=== PATIENT | female | born 1995 | race Two or more races ===

== ENCOUNTER 2025-03-24 08:09 | Outpatient (AMB) | payer MEDICAID, SELFPAY ==
[2025-03-24 08:30] VITALS: BP 109/69; PULSE 84; RESP 18; TEMP 36.2; O2SAT 98; BMI 30.9
--- NOTE | 2025-03-24 08:30 | OBCLNT_ITS ---
Vital Signs 03/24/25 08:30 Height 1.6 m Height Method Stated Weight 79.095 kg Weight Measurement Method Standing Scale BMI 30.9 BP 109/69 Blood Pressure Source Automatic Cuff Blood Pressure Location Left Upper Arm Position Sitting Respiration 18 Pulse 84 Pulse Source Monitor Temp 97.2 F Temp Source Oral Pulse Oximetry (%) 98 Oxygen Delivery Method Room Air Allergies/Home Meds Allergies & Medications Allergies No Known Allergies Allergy (Verified 03/24/25 08:34) Medication Reconciliation vits no.130-ferrous fum 27 mg iron-folic acid 800 mcg tablet ( Vitamin) 1 tab PO DAILY #60 tabs 03/24/25 [Rx] Intake Visit Data Collection New Patient or Established: Established Patient (seen at [facility] within 3 years) Reason for Visit:: OBI Seen by Clinical Staff ONLY (RN/MA): No Topper Press Operator Required: No Do You Feel Safe at Home: Yes Authorities Contacted: N/A PCP or OBGYN visit in last 3 months: Yes Hx Now: Yes Are you currently on any form of Control: No Last menstrual period: 11/24/24 Pain Present Currently: No Pain Scale Used: Lau-Campbell/Numerical Pain scale:: 0 Smoking Status Smoking Status: Never smoker Questionnaires Covid-19 Vaccine Questionnaire Has patient been vacinated for Covid-19 Have you been vacinated for Covid-19: Yes PHQ-9 PHQ-2 Over the last 2 weeks, how often have you been bothered by any of the following problems? 1. Little interest or pleasure in doing things: not at all 2. Feeling down, depressed, or hopeless: not at all Total score: 0 PHQ-9 3. Trouble falling or staying asleep, or sleeping too much: Not at all 4. Feeling tired or having little energy: Not at all 5. Poor appetite or overeating: Not at all 6. Feeling bad about yourself - or that you are a failure or have let yourself or your family down: Not at all 7. Trouble concentrating on things, such as reading the newspaper or watching television: Not at all 8. Moving or speaking so slowly that other people could have noticed? - Or the opposite - being so fidgety or restless that you have been moving around a lot more than usual: not at all 9. Thoughts that you would be better off or of hurting yourself in some way: Not at all Total score: 0 If you checked off any problems, how difficult have these problems made it for you to do your work, take care of things at home, or get along with other people?: not difficult at all Source: Developed by Drs. Eric Reich, Rin Mosher, Kurtis Bell and colleagues, with an educational ruby from [employer]. Depression screen completed yes Social History Living Situation History Marital Status: Lives With: Family Housing: [facility] Tobacco History Smoking Status: Never smoker Second Hand Smoke Exposure: No Alcohol History Alcohol Intake: Never Domestic Abuse History Do You Feel Safe at Home: Yes History of Present Illness HPI Narrative 29-year-old 4 para 2 for OBI. Patient is very happy about the . Her first 2 pregnancies were normal births and no problems. Denies any SAB complaints. Patient's last period November 24, 2024. Estimated due date August 31, 2025. She has good dates. And she reports her periods are every month. Her last Pap was 3 years ago. Patient denies social habits. Denies surgery. Denies chronic illness. And she needs a refill on her prenatals. 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 Last. Was able to . She has for dates. She is due August 31, 2025. Patient denies any leaking, denies bleeding, denies cramping. Reports movement. And she has had no problems so far with Refill prenatals today. Discussed schedule anatomy scan with MFM Dr. Tena. OB panel with NIPT, AFP and carrier screens today. Increase fluids. Discussed SAB precautions. Return in 4 weeks OB check Refill prenatals today. Dis cussed schedule anatomy scan with MFM Dr. Tena. OB panel with NIPT, AFP and carrier screens today. Increase fluids. Discussed SAB precautions. Return in 4 weeks OB check, pap PP Menstrual History Menstrual reliability: definite Flow: normal Menstrual regularity: regular Monthly: Yes Age at menarche: 11 On control pills at conception: No OB History : 4 Para: 2 Hx # Pregnancies: 0 Hx Total # of Abortions (Spontaneous & Elective): 1 # of Living Children: 2 Delivery History 1st : Child's name: NA date: 10/10/14 sex: male Gestational age at delivery (weeks): 39 Delivery type: vaginal weight (lbs): 3175.147 g History of depression before or after : No 2nd : Child's name: NA date: 11/13/23 sex: female Gestational age at delivery (weeks): 40 Delivery type: vaginal weight (lbs): 3175.147 g History of depression before or after : No Infection History & Risk Evaluation History of STDs: none HIV risk evaluation: low risk Hepatitis B risk evaluation: low risk Patient or partner has history of Genital Herpes: No Varicella/chicken pox status: immunized Genetic Screening & History Genetic Screening/Teratology Counseling - Includes patient, baby's father, or anyone in either family with: 1. Patient's age 35 years or older as of estimated date of delivery: No 2. Thalassemia (Greenlandic, Albanian, Mediterranean, or Background); MCV less than 80: No 3. Neural Tube Defect (Meningomyelocele, Spina Bifida, or Anencephaly): No 4. Congenital Heart Defect: No 5. Down Syndrome: No 6. Artie-Sachs (Ashkenazi Spiritism, Cajun, Arabic [place]): No 7. Killian Disease (Ashkenazi Spiritism): No 8. Familial Dysautonomia (Ashkenazi Spiritism): No 9. Sickle Cell Disease or Trait (): No 10. Hemophilia or other blood disorders: No 11. Muscular Dystrophy: No 12. Cystic Fibrosis: No 13. Nicollet's Chorea: No 14. Mental Retardation/Autism: No 15. Other inherited genetic or chromosomal disorder: No 16. Maternal Metabolic Disorder (EG,TYPE 1 Diabetes, PKU): No 17. Patient or baby's father had a child with defects not listed above: No 18. Recurrent loss or a stillbirth: No 19. Medications (including supplements, vitamins, herbs or otc drugs)/ill icit/recreational drugs/alcohol since last menstrual period: No 20. Any other: No Infection History 1. Live with someone with TB or exposed to TB: No 2. Rash or viral illness since last menstrual period: No 3. Hepatitis B,C: No Other (see comments) Source: [employer] Review of Systems Review of Systems Systems Reviewed: All systems reviewed, normal except as documented Exam General Limitations: no limitations General Appearance: alert, in no apparent distress, comfortable, cooperative, healthy appearing, well developed and well groomed Head Head exam: atraumatic, normocephalic and normal inspection Neck Neck exam: Present normal inspection, full ROM and trachea midline Chest Chest inspection: Present normal inspection and symmetric chest wall rise Resp Respiratory exam: Present normal lung sounds bilaterally Card Cardiovascular exam: Present regular rate, normal rhythm and normal heart sounds Abdominal Abdominal exam: Present soft and normal bowel sounds Psych Psychiatric exam: Present normal affect and normal mood Office Procedures OB Clinic LOC & Office Proc's Nursing/Assessment Patient Status: Established Patient OB Clinic Nursing Assessment: Medication Reconciliation, Update PMH in EMR and Vital Signs OB Clinic Coordination of Care: Complex Care and Chronic Disease 1-5, Consent,records obtained, informed consent, Lab and Imaging orders and Staff clarify orders Special Needs: Heart tones Established Patient Charge Established Patient Point Assignment: 115 Established Patient Point Charge: EP Level 3 (80-115) Results Urine HCG Urine HCG Positive Last Edit by Margy Jones MA on 03/24/25 08:46 Assessment & Plan Diagnosis / Problem List (1) Encounter for supervision of normal intrauterine in multigravida, antepartum: Status: Acute (2) Encounter for supervision of high risk in second trimester, antepartum: Status: Acute Plan Start vitamins. Schedule ultrasound for anatomy scan with MFM. OB panel today with NIPT and AFP. Discussed SAB precautions. Return in 4 weeks. PAP pp Additional Plan Follow Up: 4 Weeks (obc)
== END 2025-03-24 09:10 | disposition home or self-care (01) ==
LOC: HODSOBC 08:09
PROVIDERS: Supervising Provider Advanced Practice Midwife; Visit Provider Advanced Practice Midwife
DX: Z34.82 Encounter for supervision of other normal pregnancy, second trimester (principal); Z3A.17 17 weeks gestation of pregnancy
CPT/HCPCS: 99213; G0463

== ENCOUNTER 2025-04-26 09:17 | Outpatient (AMB) | payer MEDICAID, SELFPAY ==
[2025-04-26 09:33] VITALS: BP 120/76; PULSE 80; RESP 19; TEMP 36.3; O2SAT 98; BMI 32.4
--- NOTE | 2025-04-26 09:33 | AMB.OBVISIT ---
Vital Signs 04/26/25 09:33 Height 1.6 m Height Method Measured Weight 83.007 kg Weight Measurement Method Standing Scale BMI 32.4 BP 120/76 Blood Pressure Source Automatic Cuff Blood Pressure Location Right Upper Arm Position Sitting Respiration 19 Pulse 80 Pulse Source Monitor Temp 97.3 F Temp Source Temporal Artery Scan Pulse Oximetry (%) 98 Oxygen Delivery Method Room Air Allergies/Home Meds Allergies & Medications Allergies No Known Allergies Allergy (Verified 03/24/25 08:34) Intake Visit Data Collection New Patient or Established: Established Patient (seen at [facility] within 3 years) Reason for Visit:: OBC FOLLOW UP Seen by Clinical Staff ONLY (RN/MA): No Instructional Technology Teacher Required: Yes Instructional Technology Teacher's name/title: VOLODYMYR REZA Do You Feel Safe at Home: Yes Authorities Contacted: N/A PCP or OBGYN visit in last 3 months: Yes Date of Last PCP or OBGYN visit: 03/24/25 Hx Now: Yes Pain Present Currently: No Smoking Status Smoking Status: Never smoker Questionnaires PHQ-9 PHQ-2 Over the last 2 weeks, how often have you been bothered by any of the following problems? 1. Little interest or pleasure in doing things: not at all PHQ-9 8. Moving or speaking so slowly that other people could have noticed? - Or the opposite - being so fidgety or restless that you have been moving around a lot more than usual: not at all Source: Developed by Drs. Eric Reich, Rin Mosher, Kurtis Bell and colleagues, with an educational ruby from [employer]. 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 Last. Was able to 22nd to 25. She has for dates. She is due August 31, 2025. Patient denies any leaking, denies bleeding, denies cramping. Reports movement. And she has had no problems so far with Refill prenatals today. Discussed schedule anatomy scan with MFM Dr. Tena. OB panel with NIPT, AFP and carrier screens today. Increase fluids. Discussed SAB precautions. Return in 4 weeks OB check Refill prenatals today. Discussed schedule anatomy scan with MFM Dr. Tena. OB panel with NIPT, AFP and carrier screens today. Increase fluids. Discussed SAB precautions. Return in 4 weeks OB check, pap PP 04/26/25 <del>?</del> 21w 6d 83.007 kg 120/76 absent unknown 21 156 active Reports positive movement. Denies labor complaints. Denies leaking, bleeding, contractions. Discussed labs. Discussed labor precautions. Increase fluids. Maternal- medicine appointment is pending. Return in 4 weeks OB check HAYDE Calculator Estimated Delivery Date Method Current WG Current Estimate 08/31/25 LMP (Certain) 21w 6d Notes Visit Date: 04/26/25 Last Updated by: Michelle Alexander CNM O+,abs-, rpr;;nr, rub imm, hbsag-, hiv-, HC-, GC/CT-, UA-, NIPT/female. CF/SMA/AFP- Visit Date: 03/24/25 Last Updated by: Michelle Alexander CNM 29 yo . lmp: 11/24/24. EDC: 08/31/25 Office Procedures OB Clinic LOC & Office Proc's Nursing/Assessment Patient Status: Established Patient OB Clinic Nursing Assessment: Medication Reconciliation, Update PMH in EMR and Vital Signs OB Clinic Coordination of Care: Complex Care and Chronic Disease 1-5, Consent,records obtained, informed consent, Lab and Imaging orders, Results/Orders obtained and Staff clarify orders Special Needs: Heart tones Established Patient Charge Established Patient Point Assignment: 120 Established Patient Point Charge: EP Level 3 (80-115) Assessment & Plan Diagnosis / Problem List (1) Encounter for supervision of high risk in second trimester, antepartum: Status: Acute Plan Follow-up follow-up on maternal- medicine appointment. Discussed labor precautions. Increase fluids. Discussed labs. Return in 4 weeks OB check Additional Plan Follow Up: 4 Weeks (obc)
== END 2025-04-26 10:01 | disposition home or self-care (01) ==
LOC: HODSOBC 09:17
PROVIDERS: Supervising Provider Advanced Practice Midwife; Visit Provider Advanced Practice Midwife
DX: O09.92 Supervision of high risk pregnancy, unspecified, second trimester (principal); Z3A.21 21 weeks gestation of pregnancy
CPT/HCPCS: 99213; G0463

== ENCOUNTER 2025-05-25 10:24 | Outpatient (AMB) | payer MEDICAID, SELFPAY ==
[2025-05-25 10:51] VITALS: BP 111/70; PULSE 85; RESP 16; TEMP 36.4; O2SAT 98; BMI 34.2
--- NOTE | 2025-05-25 10:51 | OBCLNT_ITS ---
Vital Signs 05/25/25 10:51 Height 1.6 m Height Method Stated Weight 87.6 kg Weight Measurement Method Standing Scale BMI 34.2 BP 111/70 Blood Pressure Source Automatic Cuff Blood Pressure Location Right Upper Arm Position Sitting Respiration 16 Pulse 85 Pulse Source Monitor Temp 97.6 F Temp Source Temporal Artery Scan Pulse Oximetry (%) 98 Oxygen Delivery Method Room Air Allergies/Home Meds Allergies & Medications Allergies No Known Allergies Allergy (Verified 05/25/25 10:53) Medication Reconciliation vits no.130-ferrous fum 27 mg iron-folic acid 800 mcg tablet ( Vitamin) 1 tab PO DAILY #60 tabs 03/24/25 [Rx Confirmed 05/25/25] Intake Visit Data Collection New Patient or Established: Established Patient (seen at [facility] within 3 years) Reason for Visit:: OBC Seen by Clinical Staff ONLY (RN/MA): No Hogshead Inspector Required: No Do You Feel Safe at Home: Yes Authorities Contacted: N/A PCP or OBGYN visit in last 3 months: Yes Date of Last PCP or OBGYN visit: 04/26/25 Hx Now: Yes Are you currently on any form of Control: No Pain Present Currently: No Pain Scale Used: Lau-Campbell/Numerical Pain scale:: 0 Smoking Status Smoking Status: Never smoker Immunizations Flu Vaccine in the Last 12 Months: No Questionnaires Covid-19 Vaccine Questionnaire Has patient been vacinated for Covid-19 Have you been vacinated for Covid-19: No PHQ-9 PHQ-2 Over the last 2 weeks, how often have you been bothered by any of the following problems? 1. Little interest or pleasure in doing things: not at all 2. Feeling down, depressed, or hopeless: not at all Total score: 0 PHQ-9 8. Moving or speaking so slowly that other people could have noticed? - Or the opposite - being so fidgety or restless that you have been moving around a lot more than usual: not at all Source: Developed by Drs. Eric Reich, Rin Mosher, Kurtis Bell and colleagues, with an educational ruby from [employer]. 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 Last. Was able to 22nd to 25. She has for dates. She is due August 31, 2025. Patient denies any leaking, denies bleeding, denies cramping. Reports movement. And she has had no problems so far with Refill prenatals today. Discussed schedule anatomy scan with M Dr. Tena. OB panel with NIPT, AFP and carrier screens today. Increase fluids. Discussed SAB precautions. Return in 4 weeks OB check Refill prenatals today. Dis cussed schedule anatomy scan with M Dr. Tena. OB panel with NIPT, AFP and carrier screens today. Increase fluids. Discussed SAB precautions. Return in 4 weeks OB check, pap PP 04/26/25 -?-?-?-?-?-?-?-?-?-?-?-?- 21w 6d 83.007 kg 120/76 absent unknown 21 156 active Reports positive movement. Denies labor complaints. Denies leaking, bleeding, contractions. Discussed labs. Discussed labor precautions. Increase fluids. Maternal- medicine appointment is pending. Return in 4 weeks OB check 05/25/25 -?-?-?-?-?-?-?-?-?-?-?-?- 26w 0d 87.6 kg 111/70 absent unknown 26 154 active Fetus active. Reports good movement. Denies leaking, bleeding, cramps. Third trimester labs today. Patient has a follow-up [facility] ultrasound for low-lying placenta the end of June. Discussed labor precautions. And discussed danger signs symptoms ER precautions return in 4 weeks OB check HAYDE Calculator Estimated Delivery Date Method Current WG Current Estimate 08/31/25 LMP (Certain) 26w 0d Other Estimates 08/31/25 Ultrasound #1 26w 0d 08/31/25 Manual 26w 0d final hayde: 08/31. EFW: 86%,low lying previa Notes Visit Date: 05/25/25 Last Updated by: Michelle Alexander CNM 05/11: low lying placenta/86% Visit Date: 04/26/25 Last Updated by: Michelle Alexander CNM O+,abs-, rpr;;nr, rub imm, hbsag-, hiv-, HC-, GC/CT-, UA-, NIPT/female. CF/SMA/AFP- Visit Date: 03/24/25 Last Updated by: Michelle Alexander CNM 29 yo . lmp: 11/24/24. EDC: 08/31/25 Office Procedures OBC Clinic LOC & Office Proc's Nursing/Assessment Patient Status: Established Patient OB Clinic Nursing Assessment: Medication Reconciliation, Update PMH in EMR and Vital Signs OB Clinic Coordination of Care: Complex Care and Chronic Disease 1-5, Education Complex Pt/Fam, Consent,records obtained, informed consent, Lab and Imaging orders and Staff clarify orders Special Needs: Heart tones Established Patient Charge Established Patient Point Assignment: 135 Established Patient Point Charge: EP Level 4 (120-155) Assessment & Plan Diagnosis / Problem List (1) Encounter for supervision of high risk in second trimester, antepartum: Status: Acute Plan Third trimester labs. Follow-up ultrasound for evaluation of low placenta previa in 4 weeks. Discussed labor precautions and ER precautions. Return in 4 weeks OB check Additional Plan Follow Up: 4 Weeks (obc) 4 Weeks
== END 2025-05-25 11:21 | disposition home or self-care (01) ==
LOC: HODSOBC 10:24
PROVIDERS: Supervising Provider Advanced Practice Midwife; Visit Provider Advanced Practice Midwife
DX: O09.892 Supervision of other high risk pregnancies, second trimester (principal); O44.42 Low lying placenta NOS or without hemorrhage, second trimester; Z3A.26 26 weeks gestation of pregnancy
CPT/HCPCS: 99214; G0463

== ENCOUNTER 2025-06-22 10:02 | Outpatient (AMB) | payer MEDICAID, SELFPAY ==
[2025-06-22 10:14] VITALS: BP 120/77; PULSE 76; RESP 18; TEMP 36.3; O2SAT 98; BMI 35.2
--- NOTE | 2025-06-22 10:14 | OBCLNT_ITS ---
Vital Signs 06/22/25 10:14 Height 1.6 m Height Method Stated Weight 90.038 kg Weight Measurement Method Standing Scale BMI 35.2 BP 120/77 Blood Pressure Source Automatic Cuff Blood Pressure Location Right Upper Arm Position Sitting Respiration 18 Pulse 76 Pulse Source Monitor Temp 97.3 F Temp Source Temporal Artery Scan Pulse Oximetry (%) 98 Oxygen Delivery Method Room Air Allergies/Home Meds Allergies & Medications Allergies No Known Allergies Allergy (Verified 06/22/25 10:15) Medication Reconciliation vits no.130-ferrous fum 27 mg iron-folic acid 800 mcg tablet ( Vitamin) 1 tab PO DAILY #60 tabs 03/24/25 [Rx Confirmed 06/22/25] hydrocortisone 2.5 % topical cream with perineal applicator (Proctosol HC) 1 applic [place] QD-BID PRN hemorrhoids #30 grams 06/22/25 [Rx] Immunizations Immunizations Flu Vaccine in the Last 12 Months: No Flu Vaccine Exclusion Criteria: No Exclusion Criteria Care OB Visit Log OB Flowsheet Initial Weight: Not Recorded Date -?-?-?-?-?-?-?-?-?-?-?-?- EGA Weight BP Alb Glu CTX Pres Fundal ht FHR Mov Dilation Station Effacement Hx Notes Visit Note 03/24/25 -?-?-?-?-?-?-?--?-?-?-?-?- 17w 1d 79.095 kg 109/69 absent unknown 16 145 active 29-year-old 4 para 2 for OBI. Last. Was able to 22nd to 25. She has for dates. She is due August 31, 2025. Patient denies any leaking, denies bleeding, denies cramping. Reports movement. And she has had no problems so far with Refill prenatals today. Discussed schedule anatomy scan with MFM Dr. Tena. OB panel with NIPT, AFP and carrier screens today. Increase fluids. Discussed SAB precautions. Return in 4 weeks OB check Refill prenatals today. Dis cussed schedule anatomy scan with M Dr. Tena. OB panel with NIPT, AFP and carrier screens today. Increase fluids. Discussed SAB precautions. Return in 4 weeks OB check, pap PP 04/26/25 -?-?-?-?-?-?-?-?-?-?-?-?- 21w 6d 83.007 kg 120/76 absent unknown 21 156 active Reports positive movement. Denies labor complaints. Denies leaking, bleeding, contractions. Discussed labs. Discussed labor precautions. Increase fluids. Maternal- medicine appointment is pending. Return in 4 weeks OB check 05/25/25 -?-?-?-?-?-?-?-?-?-?-?-?- 26w 0d 87.6 kg 111/70 absent unknown 26 154 active Fetus active. Reports good movement. Denies leaking, bleeding, cramps. Third trimester labs today. Patient has a follow-up [facility] ultrasound for low-lying placenta the end of June. Discussed labor precautions. And discussed danger signs symptoms ER precautions return in 4 weeks OB check 06/22/25 -?-?-?-?-?-?-?-?-?-?-?-?- 30w 0d 90.038 kg 120/77 absent unknown 30 125 active Complains of constipation and a small hemorrhoid. Reports good movement. Denies leaking, bleeding, cramps Procto [place] HC twice daily to hemorrhoids. Increase fiber. Increase fluids. Increase roughage. Comfort measures. Patient has anatomy scan with Dr. Tena today. Tdap and flu vaccine today. Discussed labor precautions. Return in 2 weeks OB to Proctosol HC twice daily to hemorrhoids. Increase fiber. Increase fluids. Increase roughage. Comfort measures. Patient has anatomy scan with Dr. Tena today. Tdap and flu vaccine today. Discussed labor precautions. Return in 2 weeks OB totoday, flu and TDAP HAYDE Calculator Estimated Delivery Date Method Current WG Current Estimate 08/31/25 LMP (Certain) 30w 0d Other Estimates 08/31/25 Ultrasound #1 30w 0d 08/31/25 Manual 30w 0d final hayde: 08/31. EFW: 86%,low lying previa Notes Visit Date: 06/22/25 Last Updated by: Michelle Alexander CNM 3rd tri lab WNL, A1: 5.3, RPR::NR Visit Date: 05/25/25 Last Updated by: Michelle Alexander CNM 05/11: low lying placenta/86% Visit Date: 04/26/25 Last Updated by: Michelle Alexander CNM O+,abs-, rpr;;nr, rub imm, hbsag-, hiv-, HC-, GC/CT-, UA-, NIPT/female. CF/SMA/AFP- Visit Date: 03/24/25 Last Updated by: Michelle Alexander CNM 29 yo . lmp: 11/24/24. EDC: 08/31/25 Office Procedures [facility] LOC & Office Proc's Nursing/Assessment Patient Status: Established Patient OB Clinic Nursing Assessment: Medication Reconciliation, Update PMH in EMR and Vital Signs OB Clinic Coordination of Care: Complex Care and Chronic Disease 1-5, Education Complex Pt/Fam, Consent,records obtained, informed consent, Lab and Imaging orders, Results/Orders obtained and Staff clarify orders Special Needs: Heart tones Established Patient Charge Established Patient Point Assignment: 140 Established Patient Point Charge: EP Level 4 (120-155) Injection/Vaccine Admin SQ Im Injection: Yes Immunizations flu vac ts (6mos up)-PF 45 mcg(15mcg x3)/0.5 mL IM syringe Performing Provider: Michelle Alexander CNM Performing Location: [facility] Administered by: Mary Cornejo MA on 06/22/25 14:37 Dose Route Admin Location Dispensed Lot Number Expiration Date Pack age [facility] Sole Buffer 0.5 mL IM Left Deltoid 0.5 mL [id number] 02/01/26 [id number] VIS Given Date VIS Provided VIS Publication Date 06/22/25 Single Vaccine 24 Eligibility Eligibility Date Funding Source Public Non-VFC diphth,pertus(acell),tetanus 2.5 Lf unit-8 mcg-5 Lf/0.5mL IM syringe Performing Provider: Michelle Alexander CNM Performing Location: [facility] Administered by: Mary Cornejo MA on 06/22/25 14:38 Dose Route Admin Location Dispensed Lot Number Expiration Date Pack age [facility] Sole Buffer 0.5 mL IM Left Deltoid 0.5 mL [id number] 01/15/28 [id number] VIS Given Date VIS Provided VIS Publication Date 06/22/25 Single Vaccine 24 Eligibility Eligibility Date Funding Source Public Non-[facility] Assessment & Plan Diagnosis / Problem List (1) Encounter for supervision of high risk in third trimester, antepartum: Status: Acute Plan Flu and Tdap vaccines today. Discussed labor precautions. Patient has an MFM appointment with Dr. Tena today. Increase iron foods. Comfort measures for hemorrhoids reviewed including increasing fiber and fluids. I gave her Proctosol to place twice daily to hemorrhoid return in 2 weeks OB check Additional Plan Follow Up: 2 Weeks (obc)
== END 2025-06-22 10:57 | disposition home or self-care (01) ==
LOC: HODSOBC 10:02
PROVIDERS: Supervising Provider Advanced Practice Midwife; Visit Provider Advanced Practice Midwife
DX: O09.893 Supervision of other high risk pregnancies, third trimester (principal); O22.43 Hemorrhoids in pregnancy, third trimester; O99.613 Diseases of the digestive system complicating pregnancy, third trimester; Z3A.30 30 weeks gestation of pregnancy; K59.00 Constipation, unspecified; Z23 Encounter for immunization
CPT/HCPCS: 90471; 90686; 90715; 96372; 99214; G0463; J9060

== ENCOUNTER 2025-07-30 03:53 | Observation (INO) | payer MEDICAID, SELFPAY ==
[2025-07-30] VITALS (20 sets, daily range): BP systolic 112–136; BP diastolic 69–84; PULSE 61–74; RESP 16–99; TEMP 37.2; O2SAT 97–100; BMI 37.5
[2025-07-30 04:56] LABS: Collection Type, Urine Clean Catch
[2025-07-30 05:01] LABS: Bilirubin,Urine Negative (Negative); Blood,Urine Negative (Negative); Clarity,Urine Clear (Clear/Hazy); Color,Urine Lt-Yellow (Lt Yel-Yel); Glucose, Urine Negative (Negative); Ketones,Urine Negative (Negative); Leukocyte Esterase,Urine Negative (Negative); Nitrite,Urine Negative (Negative); PH,Urine 7.0 (5.0-7.0); Protein,Urine Trace (Neg - Trace); RBC,Urine 1 /hpf (0-3); Specific Gravity,Urine 1.013 (1.001-1.035); Squamous Epithelial Cell,Urine 1 /hpf (0-5); Urobilinogen,Urine Negative mg/dL (0.0-1.0); WBC,Urine 1 /hpf (0-5)
== END 2025-07-30 05:50 | disposition home or self-care (01) ==
PROVIDERS: Admitting Provider Obstetrics & Gynecology; Visit Provider Obstetrics & Gynecology
DX: O26.893 Other specified pregnancy related conditions, third trimester (principal); Z3A.35 35 weeks gestation of pregnancy; R25.2 Cramp and spasm
CPT/HCPCS: 59025; 59899; 81001